=== PATIENT | female | born 1945 | race Caucasian/White ===

== ENCOUNTER 2018-03-08 22:52 | Emergency (ER) | payer MEDICARE, OTHER, MEDICAID ==
[2018-03-08 23:39] LABS: ADD MAN DIFF? NO
[2018-03-08 23:40] LABS: BASOPHILS % 0.4 % (0.0-2.0); EOSINOPHILS # 0.3 10^3/ul (0.0-0.5); EOSINOPHILS % 2.6 % (0.0-7.0); HEMATOCRIT 38.3 % (37.0-47.0); HEMOGLOBIN 12.4 g/dl (12.0-16.0); LYMPHOCYTES # 2.2 10^3/ul (0.8-2.9); LYMPHOCYTES % 22.3 % (15.0-51.0); MEAN CORPUSCULAR HEMOGLOBIN 26.1 pg (29.0-33.0); MEAN CORPUSCULAR HGB CONC 32.4 g/dl (32.0-37.0); MEAN CORPUSCULAR VOLUME 80.6 fl (82.0-101.0); MEAN PLATELET VOLUME 9.8 fl (7.4-10.4); MONOCYTE # 0.8 10^3/ul (0.3-0.9); MONOCYTES % 8.5 % (0.0-11.0); NEUTROPHIL # 6.4 10^3/ul (1.6-7.5); NEUTROPHILS % 65.9 % (39.0-77.0); PLATELET COUNT 309 10^3/UL (140-415); RED BLOOD COUNT 4.75 10^6/ul (4.20-5.40); RED CELL DISTRIBUTION WIDTH 15.4 % (11.5-14.5)
[2018-03-08 23:40] LABS: WHITE BLOOD COUNT 9.8 10^3/ul (4.8-10.8)
[2018-03-08] MEDS: morphine 2 MG INJ IV (23:47)
[2018-03-08] MEDS: ONDANSETRON 4 MG INJ IV (23:47)
[2018-03-09 00:05] LABS: ALANINE AMINOTRANSFERASE 24 IU/L (13-69); ALBUMIN 3.5 g/dl (3.3-4.9); ALKALINE PHOSPHATASE 92 IU/L (42-121); ANION GAP 13 (8-16); ASPARTATE AMINO TRANSFERASE 16 IU/L (15-46); BILIRUBIN,INDIRECT 0.3 mg/dl (0-1.1); BILIRUBIN,TOTAL 0.3 mg/dl (0.2-1.3); BLOOD UREA NITROGEN 19 mg/dl (7-20); CARBON DIOXIDE 23 mmol/L (21-31); CHLORIDE 106 mmol/L (97-110); CREATININE 1.04 mg/dl (0.44-1.00); GLUCOSE 112 mg/dl (70-220); LIPASE 143 U/L (23-300); POTASSIUM 3.8 mmol/L (3.5-5.1); SODIUM 138 mmol/L (135-144)
[2018-03-09 00:26] LABS: URINE PH (Dip) POC 7.5 (5.0-8.5)
[2018-03-09 00:26] LABS: URINE BLOOD (Dip) POC Trace-intact (NEGATIVE); URINE GLUCOSE (Dip) POC Negative (NEGATIVE); URINE KETONES (Dip) POC Negative (NEGATIVE); URINE LEUKOCYTE EST (Dip) POC 1+ (NEGATIVE); URINE NITRITE (Dip) POC Positive (NEGATIVE); URINE TOTAL PROTEIN POC Trace (NEGATIVE)
== END 2018-03-09 03:17 | disposition home or self-care (01) ==
LOC: E/R 22:52
DX: K80.50 Calculus of bile duct without cholangitis or cholecystitis without obstruction (principal); R40.2142 Coma scale, eyes open, spontaneous, at arrival to emergency department; R40.2362 Coma scale, best motor response, obeys commands, at arrival to emergency department; R40.2252 Coma scale, best verbal response, oriented, at arrival to emergency department; N39.0 Urinary tract infection, site not specified; I10 Essential (primary) hypertension
CPT/HCPCS: 36415; 76705; 80053; 81003; 83690; 85025; 93005; 96374; 96375; 99285-25